=== PATIENT | female | born 1985 | race Caucasian/White ===

== ENCOUNTER 2018-01-14 11:22 | Emergency (ER) | END 2018-01-14 13:51 | disposition home or self-care (01) ==

== ENCOUNTER 2018-05-25 05:52 | Emergency (ER) | payer MEDICAID, OTHER ==
[~2018-05-25] VITALS: Ht 160 cm; Wt 95.9 kg
[~2018-05-25 05:52] MED LIST: ACET500C5 PO; BUTA1CAP39 PO; CEPH-443 PO; FAMO-96 PO; IBUP-1542 PO; LOPE2CAP PO; NITR-58 PO; ONDA4TAB35 PO; ONDA4TAB8 PO
[2018-05-25 05:55] VITALS: BP 123/86; PULSE 90; RESP 20; Ht 160 cm; Wt 95.9 kg
[2018-05-25] MEDS ORDERED: morphine 2 MG INJ IV STA (06:12)
[2018-05-25] MEDS ORDERED: ONDANSETRON 4 MG INJ IV STA (06:12)
[2018-05-25] MEDS ORDERED: FAMOTIDINE 20 MG INJ IV ONE (06:30)
[2018-05-25] MEDS ORDERED: ACET500C5 PO (07:38)
[2018-05-25] MEDS ORDERED: FAMO-96 PO (07:38)
--- NOTE | 2018-05-25 07:40 | ERD ---
ER Documentation Chief Complaint Chief Complaint Mid abd pain x1 week. +n/v no diarrhea no fever HPI 32-year-old female presents with epigastric pain for last week. Described as sharp and burning. Is mild radiation to the right upper quadrant. No relation to food. Possible radiation of the right mid abdomen but no lower abdominal pain. Denies dysuria, fevers, vomiting, diarrhea. Denies previous gastrointestinal issues. ROS All systems reviewed and are negative except as per history of present illness. Medications Home Meds Active Scripts Acetaminophen* (Tylophen*) 500 Mg Capsule, 1 CAP PO Q6H PRN for PAIN AND OR ELEVATED TEMP, #20 CAP Prov:YUKI BARAJAS MD 05/25/18 Famotidine* (Pepcid*) 20 Mg Tablet, 20 MG PO BID for 10 Days, TAB Prov:YUKI BARAJAS MD 05/25/18 Acetaminophen* (Tylophen*) 500 Mg Capsule, 1 CAP PO Q6H PRN for PAIN AND OR ELEVATED TEMP, #20 CAP Prov:MAGED MCLAIN-C 01/14/18 Cephalexin* (Keflex*) 500 Mg Capsule, 500 MG PO QID for 7 Days, CAP Prov:PROMAGED RIOS-C 09/07/15 Famotidine* (Pepcid*) 20 Mg Tablet, 20 MG PO BID for 14 Days, TAB Prov:PROMAGED RIOS-C 09/07/15 Acetaminophen* (Tylophen*) 500 Mg Capsule, 1 CAP PO Q6H PRN for PAIN AND OR ELEVATED TEMP, #20 CAP Prov:MAGED MCLAIN-C 09/07/15 Loperamide Hcl* (Imodium*) 2 Mg Capsule, 2 MG PO .AFTER EA LOOSE BM PRN for DIAR NICOL, #10 TAB Prov:MAGED MCLAINC 09/07/15 Ondansetron Hcl* (Zofran*) 4 Mg Tablet, 4 MG PO Q6H for NAUSEA AND/OR VOMITING, #20 TAB Prov:MAGED MCLAINC 09/07/15 Ondansetron Hcl* (Zofran* ODT) 4 mg -ODT Tab.disper, 4 MG PO Q8 PRN for NAUSEA AND OR VOMITING, #30 TAB Prov:TOMAS LITTLEJOHN NP 06/13/15 Ccflifytzxmcd-Djrnbrxboo-Gisnxubj-Codeine* (Fioricet w/ Codeine*) [id number] Capsule, 1 CAP PO Q6H PRN for PAIN LEVEL 1-5, #20 CAP Prov:TOMAS LITTLEJOHN NP 06/13/15 Ibuprofen* (Motrin*) 600 Mg Tab, 600 MG PO Q6, #20 TAB Prov:YUKI BARAJAS MD 10/25/14 Nitrofurantoin Monohyd Macrocr* (Macrobid*) 100 Mg Capsr, 100 MG PO BID for 7 Days, CAP Prov:MAXIMILIAN AGUILAR NP 09/23/14 Ondansetron Hcl* (Zofran* ODT) 4 mg -ODT Tab.disper, 4 MG PO Q8 PRN for NAUSEA AND/OR VOMITING, #30 TAB Prov:TOMAS LITTLEJOHN NP 09/07/14 Reported Medications [none] Unknown Strength No Conflict Check 06/13/15 Allergies Allergies: Coded Allergies: No Known Drug Allergies (Verified Allergy, Mild, 05/25/18) PMhx/Soc Medical and Surgical Hx: pt denies Medical Hx, pt denies Surgical Hx History of Surgery: No Anesthesia Reaction: No Hx Neurological Disorder: No Hx Respiratory Disorders: No Hx Cardiac Disorders: No Hx Psychiatric Problems: No Hx Miscellaneous Medical Probl: No Hx Alcohol Use: No Hx Substance Use: No Hx Tobacco Use: No FmHx Family History: No diabetes, No coronary disease, No other Physical Exam Vitals Vital Signs Date Temp Pulse Resp B/P (MAP) Pulse Ox O2 O2 Flow FiO2 Time Delivery Rate 05/25/18 97.3 90 20 123/86 96 05:55 (98) Physical Exam Const: No acute distress Head: Atraumatic Eyes: Normal Conjunctiva ENT: Normal External Ears, Nose and Mouth. Neck: Full range of motion. No meningismus. Resp: Clear to auscultation bilaterally Cardio: Regular rate and rhythm, no murmurs Abd: Soft, tender epigastric area. No tenderness McBurney's point. No exquisite Villegas sign. No rebound., non distended. Normal bowel sounds Skin: No petechiae or rashes Back: No midline or flank tenderness Ext: No cyanosis, or edema Neur: Awake and alert Psych: Normal Mood and Affect Result Diagram: 05/25/1861805/25/18618 Results 24 hrs Laboratory Tests Test 05/25/18 06:19 05/25/18 06:23 White Blood Count 4.8 10^3/ul Red Blood Count 4.68 10^6/ul Hemoglobin 14.3 g/dl Hematocrit 42.6 % Mean Corpuscular Volume 91.0 fl Mean Corpuscular Hemoglobin 30.6 pg Mean Corpuscular Hemoglobin Concent 33.6 g/dl Red Cell Distribution Width 12.8 % Platelet Count 245 10^3/UL Mean Platelet Volume 10.0 fl Immature Granulocytes % 0.200 % Neutrophils % 59.8 % Lymphocytes % 28.0 % Monocytes % 8.7 % Eosinophils % 2.7 % Basophils % 0.6 % Nucleated Red Blood Cells % 0.0 /100WBC Immature Granulocytes # 0.010 10^3/ul Neutrophils # 2.9 10^3/ul Lymphocytes # 1.4 10^3/ul Monocytes # 0.4 10^3/ul Eosinophils # 0.1 10^3/ul Basophils # 0.0 10^3/ul Nucleated Red Blood Cells # 0.0 10^3/ul Urine Color YELLOW Urine Clarity CLOUDY Urine pH 5.0 Urine Specific [place] 1.021 Urine Ketones TRACE mg/dL Urine Nitrite NEGATIVE mg/dL Urine Bilirubin 1+ mg/dL Urine Urobilinogen NEGATIVE mg/dL Urine Leukocyte Esterase TRACE Ziggy/ul Urine Microscopic RBC 3 /HPF Urine Microscopic WBC 6 /HPF Urine Squamous Epithelial Cells MANY /HPF Urine Bacteria FEW /HPF Urine Mucus MODERATE /HPF Urine Hemoglobin NEGATIVE mg/dL Urine Glucose NEGATIVE mg/dL Urine Total Protein NEGATIVE mg/dl Sodium Level 143 mmol/L Potassium Level 4.0 mmol/L Chloride Level 106 mmol/L Carbon Dioxide Level 29 mmol/L Anion Gap 8 Blood Urea Nitrogen 10 mg/dl Creatinine 0.70 mg/dl Est Glomerular Filtrat Rate mL/min > 60 mL/min Glucose Level 95 mg/dl Calcium Level 9.4 mg/dl Total Bilirubin 0.6 mg/dl Direct Bilirubin 0.00 mg/dl Indirect Bilirubin 0.6 mg/dl Aspartate Amino Transf (AST/SGOT) 18 IU/L Alanine Aminotransferase (ALT/SGPT) 14 IU/L Alkaline Phosphatase 86 IU/L Total Protein 7.6 g/dl Albumin 4.5 g/dl Globulin 3.10 g/dl Albumin/Globulin Ratio 1.45 Lipase 46 U/L POC Beta HCG, Qualitative NEGATIVE Current Medications Medications Dose Sig/Renny Start Time Status Last (Trade) Ordered Route PRN Stop Time Admin Dose Reason Admin Morphine 2 mg ONCE STAT 05/25/18 DC 05/25/18 Sulfate IV 06:12 05/25/18 06:38 (morphine) 06:14 Ondansetron 4 mg ONCE STAT 05/25/18 DC 05/25/18 HCl (Zofran IV 06:12 05/25/18 06:37 Inj) 06:14 Famotidine 20 mg ONCE ONCE 05/25/18 DC 05/25/18 (Pepcid Iv) IV 06:30 05/25/18 06:37 06:31 Procedures/MDM Patient presents with epigastric and possible right upper quadrant pain for last week. She was given Pepcid morphine 2 mg as well as Zofran. Right upper qu adrant ultrasound shows fatty liver and borderline common bile duct but no stones and labs and physical exam do not correlate with obstruction. CBC and CMP and lipase normal. Urine shows 1+ leukocytes although many epithelial cells. Will defer UTI treatment given symptoms do not correspond to UTI and likely dirty catch. HCG is negative. Patient may have gastritis. Will treat with Tylenol, Pepcid, primary care follow-up and return precautions. The patient was stable with no new complaints during the ER course. Clinically, there is no current evidence to suggest meningitis, sepsis, acute abdomen, pneumonia, stroke, acute coronary syndrome, pulmonary embolism, aortic dissection or any other emergent condition appearing to require further evaluation or hospitalization. Patient counseled regarding my diagnostic impression and care plan. Prior to discharge all questions answered. Pt agrees with treatment plan and understands strict return precautions. Pt is instructed to follow up with primary care provider within 24-48 hours. Precautionary instructions provided including instructions to return to the ER if not improving or for any worsening or changing symptoms or concerns. Departure Diagnosis: Primary Impression: Abdominal pain Abdominal location: epigastric Qualified Codes: R10.13 - Epigastric pain Condition: Stable Patient Instructions: Abdominal Pain, Gastritis (Adult) Referrals: DOCTOR,NOT ON STAFF (PCP) Additional Instructions: Examines normal hoy. vamos a tratar para gastritis. Cheque otro vez con glez doctor primario en el proximo gunter or regresa para mas o nueva simptomas- fiebre, vomito , mas dolor. YUKI BARAJAS MD May 25, 2018 07:40
== END 2018-05-25 07:55 | disposition home or self-care (01) ==
LOC: FTE 05:52
DX: R10.13 Epigastric pain (principal); R11.2 Nausea with vomiting, unspecified
CPT/HCPCS: 36415; 76705; 80053; 81001; 81025; 83690; 85025; 96374; 96375; J2270; J2405; Z7502; Z7610

== ENCOUNTER 2018-06-10 07:25 | Emergency (ER) | payer MEDICAID, OTHER ==
[~2018-06-10] VITALS: Ht 162.6 cm; Wt 96.9 kg
[2018-06-10 07:29] VITALS: Ht 162.6 cm; Wt 96.9 kg
[2018-06-10] MEDS ORDERED: CEFTRIAXONE 250 MG INJ IM ONE (08:00)
[2018-06-10] MEDS ORDERED: LIDOCAINE 1% (MPF) 5 ML VIAL INFIL ONE (08:00)
[2018-06-10] MEDS ORDERED: METR500T PO (09:20)
[2018-06-10] MEDS ORDERED: DOXY100T20 PO (09:20)
[2018-06-10] MEDS ORDERED: LACT1CAP56 PO (09:21)
--- NOTE | 2018-06-10 09:23 | ERD ---
ER Documentation Chief Complaint Chief Complaint pelvic pain x 3days,spotting HPI 31-year-old who presents for pelvic pain x3 days. She states that she had a Pap smear done 3 days ago and subsequently developed pain. She states that the pain is 10 out of 10 lasting for hours at a time. Pain is described as sharp and nonradiating, she also admits to dysuria. She also has associated vaginal spotting. She is taken Advil at home without relief. No other modifying factors noted, no other treatments at home. ROS All systems reviewed and are negative except as per history of present illness. Medications Home Meds Active Scripts Lactobacillus Combo No.11 (Probiotic) 1 Each Cap.sprink, 1 CAP PO DAILY for 10 Days, #10 CAP Prov:TRACEE LEAL DO 06/10/18 Metronidazole* (Flagyl*) 500 Mg Tablet, 500 MG PO BID for PID for 10 Days, #20 TAB Prov:TRACEE LEAL DO 06/10/18 Doxycycline Hyclate* (Doxycycline Hyclate*) 100 Mg Tablet.dr, 100 MG PO BID for PID for 10 Days, #20 TAB Prov:TRACEE LEAL DO 06/10/18 Acetaminophen* (Tylophen*) 500 Mg Capsule, 1 CAP PO Q6H PRN for PAIN AND OR ELEVATED TEMP, #20 CAP Prov:YUKI BARAJAS MD 05/25/18 Famotidine* (Pepcid*) 20 Mg Tablet, 20 MG PO BID for 10 Days, TAB Prov:YUKI BARAJAS MD 05/25/18 Acetaminophen* (Tylophen*) 500 Mg Capsule, 1 CAP PO Q6H PRN for PAIN AND OR ELEVATED TEMP, #20 CAP Prov:MAGED MCLAIN-C 01/14/18 Cephalexin* (Keflex*) 500 Mg Capsule, 500 MG PO QID for 7 Days, CAP Prov:MAGED MCLAIN-C 09/07/15 Famotidine* (Pepcid*) 20 Mg Tablet, 20 MG PO BID for 14 Days, TAB Prov:MAGED MCLAIN-C 09/07/15 Acetaminophen* (Tylophen*) 500 Mg Capsule, 1 CAP PO Q6H PRN for PAIN AND OR ELEVATED TEMP, #20 CAP Prov:MAGED MCLAINC 09/07/15 Loperamide Hcl* (Imodium*) 2 Mg Capsule, 2 MG PO .AFTER EA LOOSE BM PRN for DIARRHEA, #10 TAB Prov:MAGED MCLAIN PA-C 09/07/15 Ondansetron Hcl* (Zofran*) 4 Mg Tablet, 4 MG PO Q6H for NAUSEA AND/OR VOMITING, #20 TAB Prov:MAGED MCLAIN PA-C 09/07/15 Ondansetron Hcl* (Zofran* ODT) 4 mg -ODT Tab.disper, 4 MG PO Q8 PRN for NAUSEA AND OR VOMITING, #30 TAB Prov:TOMAS LITTLEJOHN NP 06/13/15 Gdehuuahasuxu-Xjqfdaxean-Gixotzju-Codeine* (Fioricet w/ Codeine*) [id number] Capsule, 1 CAP PO Q6H PRN for PAIN LEVEL 1-5, #20 CAP Prov:TOMAS LITTLEJOHN NP 06/13/15 Ibuprofen* (Motrin*) 600 Mg Tab, 600 MG PO Q6, #20 TAB Prov:YUKI BARAJAS MD 10/25/14 Nitrofurantoin Monohyd Macrocr* (Macrobid*) 100 Mg Capsr, 100 MG PO BID for 7 Days, CAP Prov:MAXIMILIAN AGUILAR NP 09/23/14 Ondansetron Hcl* (Zofran* ODT) 4 mg -ODT Tab.disper, 4 MG PO Q8 PRN for NAUSEA AND/OR VOMITING, #30 TAB Prov:TOMAS LITTLEJOHN NP 09/07/14 Reported Medications [none] Unknown Strength No Conflict Check 06/13/15 Allergies Allergies: Coded Allergies: No Known Drug Allergies (Verified Allergy, Mild, 05/25/18) PMhx/Soc Medical and Surgical Hx: pt denies Medical Hx, pt denies Surgical Hx History of Surgery: No Anesthesia Reaction: No Hx Neurological Disorder: No Hx Respiratory Disorders: No Hx Cardiac Disorders: No Hx Psychiatric Problems: No Hx Miscellaneous Medical Probl: No Hx Alcohol Use: No Hx Substance Use: No Hx Tobacco Use: No Smoking Status: Never smoker Physical Exam Vitals Vital Signs Date Temp Pulse Resp B/P (MAP) Pulse Ox O2 O2 Flow FiO2 Time Delivery Rate 06/10/18 97.3 79 18 125/74 100 Room Air 09:39 (91) 06/10/18 96.9 75 18 132/72 100 07:29 (92) Physical Exam Const: No acute distress Resp: Clear to auscultation bilaterally Cardio: Regular rate and rhythm, no murmurs Abd: Soft, non tender, non distended. Normal bowel sounds Skin: No petechiae or rashes Back: No midline or flank tenderness Ext: No cyanosis, or edema Neur: Awake and alert Psych: Normal Mood and Affect Results 24 hrs Laboratory Tests Test 06/10/18 08:07 06/10/18 08:08 Urine Color YELLOW Urine Clarity CLOUDY Urine pH 5.0 Urine Specific [place] 1.026 Urine Ketones NEGATIVE mg/dL Urine Nitrite NEGATIVE mg/dL Urine Bilirubin NEGATIVE mg/dL Urine Urobilinogen NEGATIVE mg/dL Urine Leukocyte Esterase NEGATIVE Ziggy/ul Urine Microscopic RBC 1 /HPF Urine Microscopic WBC 1 /HPF Urine Squamous Epithelial Cells MODERATE /HPF Urine Mucus MODERATE /HPF Urine Hemoglobin NEGATIVE mg/dL Urine Glucose NEGATIVE mg/dL Urine Total Protein NEGATIVE mg/dl POC Beta HCG, Qualitative NEGATIVE Current Medications Medications Dose Sig/Renny Start Time Status Last (Trade) Ordered Route PRN Stop Time Admin Dose Reason Admin Ceftriaxone 250 mg ONCE ONCE 06/10/18 DC 06/10/18 Sodium IM 08:00 08:12 (Rocephin) 06/10/18 08:01 Lidocaine 5 ml ONCE ONCE 06/10/18 DC 06/10/18 (Xylocaine INFIL 08:00 08:12 1% (Mpf)) 06/10/18 08:01 Procedures/MDM Medical Decision Making: Differential diagnosis includes but not limited to endometritis/PID, urethritis, bladder infection, pyelonephritis Patient appeared well on physical exam. ED course: Given recent cervical Pap smear, manipulation there is a possibility the patient may endometritis. Patient will be treated empirically with antibiotics. Patient given IM 250 mg out of Rocephin in the ER. Prescription(s): Patient given prescription for supportive medication(s) as well as antibiotics Flagyl and doxycycline. Patient advised to follow up with PCP in 1-2 days. Patient advised to return to ED for new or worsening symptoms. Patient stable on discharge from the ED. Disclaimer: Inadvertent spelling and grammatical errors are likely due to EHR/dictation software use and do not reflect on the overall quality of patient care. Also, please note that the electronic time recorded on this note does not necessarily reflect the actual time of the patient encounter. Departure Diagnosis: Primary Impression: Acute pain in female pelvis Condition: Fair Patient Instructions: Treating Pelvic Inflammatory Disease (PID) with Medications Referrals: [facility] YOU HAVE RECEIVED A MEDICAL SCREENING EXAM AND THE RESULTS INDICATE THAT YOU DO NOT HAVE A CONDITION THAT REQUIRES URGENT TREATMENT IN THE EMERGENCY DEPARTMENT. FURTHER EVALUATION AND TREATMENT OF YOUR CONDITION CAN WAIT UNTIL YOU ARE SEEN IN YOUR DOCTORS OFFICE WITHIN THE NEXT 1-2 DAYS. IT IS YOUR RESPONSIBILITY TO MAKE AN APPOINTMENT FOR FOLOW-UP CARE. IF YOU HAVE A PRIMARY DOCTOR --you should call your primary doctor and schedule an appointment IF YOU DO NOT HAVE A PRIMARY DOCTOR YOU CAN CALL OUR PHYSICIAN REFERRAL HOTLINE AT IF YOU CAN NOT AFFORD TO SEE A PHYSICIAN YOU CAN CHOSE FROM THE FOLLOWING [facility] [address] [facility]. [facility] [address] [facility]. [facility] [address] [facility] [address] [facility] [address] [facility] [facility] [address] [facility]. [facility]. [address] Additional Instructions: Call your primary care doctor TOMORROW for an appointment during the next 1-2 days.See the doctor sooner or return here if your condition worsens before your appointment time. TRACEE LEAL DO Jun 10, 2018 09:23
[2018-06-10 09:39] VITALS: BP 125/74; PULSE 79; RESP 18
== END 2018-06-10 09:41 | disposition home or self-care (01) ==
LOC: FTE 07:25
DX: R10.2 Pelvic and perineal pain (principal)
CPT/HCPCS: 81001; 81025; 96372; J0696; Z7502; Z7610

== ENCOUNTER 2018-12-01 10:05 | Emergency (ER) | payer OTHER ==
[~2018-12-01] VITALS: Ht 162.6 cm; Wt 90.0 kg
[~2018-12-01 10:05] MED LIST changes: +BUTA1CAP38 PO; +DOXY-214 PO; +EXCED PO; +LACT1CAP56 PO; +METO10TA92 PO; +METR500T PO; +ONDA4TAB14 PO
[2018-12-01 10:09] VITALS: Ht 162.6 cm; Wt 90.0 kg
[2018-12-01 13:35] VITALS: BP 127/75; PULSE 70; RESP 16
== END 2018-12-01 13:36 | disposition home or self-care (01) ==
LOC: FTE 10:05
DX: R11.10 Vomiting, unspecified (principal)
CPT/HCPCS: 36415; 76705; 80053; 81001; 81025; 83690; 85025; Z7502; 81003